=== PATIENT | female | born 1955 | race Caucasian/White ===

== ENCOUNTER 2023-10-06 10:00 | Observation (INO) ==
[2023-10-06] MEDS: VERSED ONE (10:13)
[2023-10-06] MEDS: NOZIN NASAL SANITIZER TP ONE (10:45)
[2023-10-06] MEDS: NS 1,000 ML IV 1,000 ML ONE ×2 (10:45→13:57)
[2023-10-06 11:52] VITALS: BMI 32.5
[2023-10-06] MEDS: PRECEDEX INJ VIAL ONE (12:07)
[2023-10-06] MEDS: NAROPIN 0.75% EPI ONE (12:07)
[2023-10-06] MEDS: ANCEF VIAL 1 GRAM ONE (12:51)
[2023-10-06] MEDS: NS 100 ML IV 100 ML ONE (12:51)
[2023-10-06] MEDS: MARCAINE 0.25% INJ ONE (12:52)
[2023-10-06] MEDS ORDERED: XYLOCAINE 2 % (PLAIN) ONE (13:04)
[2023-10-06] MEDS ORDERED: ULTANE GAS IN ONE (13:04)
[2023-10-06] MEDS: DIPRIVAN VIAL 20 ML ONE (13:04)
[2023-10-06] MEDS: PEPCID 20 MG VIAL ONE (13:04)
[2023-10-06] MEDS: FENTANYL VIAL INJ 100 mcg ONE (13:04)
[2023-10-06] MEDS: ZOFRAN INJ 4 MG VIAL ONE (13:04)
[2023-10-06] MEDS: DECADRON INJ ONE ×2 (13:04)
[2023-10-06] MEDS: OFIRMEV IV 1000 MG VIAL 1,000 MG/100 ML VIAL IV ONE (13:04)
[2023-10-06] MEDS ORDERED: KETAMINE HCL ONE (13:04)
[2023-10-06] MEDS: EPHEDRINE SULFATE INJ ONE (13:37)
[2023-10-06] MEDS ORDERED: REGLAN INJ 10 MG VIAL IVP PRN (15:22)
[2023-10-06] MEDS ORDERED: BARHEMSYS INJ IVP PRN (15:22)
[2023-10-06] MEDS ORDERED: DILAUDID INJ IVP PRN ×2 (15:22→15:40)
[2023-10-06] MEDS ORDERED: ZOFRAN INJ 4 MG VIAL IVP PRN ×2 (15:22→15:40)
[2023-10-06] MEDS ORDERED: BENADRYL INJ 50 MG VIAL IVP PRN (15:22)
[2023-10-06] MEDS ORDERED: PERCOCET TAB 5/325 MG PO PRN (15:40)
[2023-10-06] MEDS: NS 1,000 ML IV 1,000 ML IV SCH (17:15)
[2023-10-06] MEDS: COLACE CAP 100 MG PO SCH (21:07)
[2023-10-06] MEDS: ANCEF VIAL 1 GRAM IVP SCH (21:08)
[2023-10-06] MEDS: NOZIN NASAL SANITIZER TP SCH (21:48)
[2023-10-07 05:40] LABS: BLOOD UREA NITROGEN 17 mg/dL (7-18); CALCIUM 8.1 mg/dL (8.5-10.1); CARBON DIOXIDE 28.4 mmol/L (21-32); CHLORIDE 107 mmol/L (98-107); COR NA(FOR HYPERGLY) 144 mmol/L (136-145); CREATININE 0.88 mg/dL (0.55-1.02); GLUCOSE 134 mg/dL (65-99); POTASSIUM 4.1 mmol/L (3.5-5.1); SODIUM 143 mmol/L (136-145); eGFR NON BLACK RACES > 60 (>60)
[2023-10-07 07:55] VITALS: BP 145/72; PULSE 82; RESP 18; TEMP 97.1; O2SAT 93
[2023-10-07] MEDS: LOVENOX INJ 40 MG SYR SC SCH (08:26)
[2023-10-07] MEDS: TYLENOL 325 MG TAB PO PRN (08:27)
--- NOTE | 2023-10-07 08:42 | NOTE.SOAP ---
Soap Note Note for Day of Date of Exam: 10/07/23 Subjective Data Subjective Data: Patient is POD1 s/p Hardware exchange, STJ and ANkle fusion, right lower extremity. Patient is doing well this am; no complaints or pain exception of a headache. She states she is ready to go home. Objective Data Objective Data: Incisions are well coapted; there was quite a bit of sanguinous drainage this morning expected in the post op period. Skin looks good, minimal edema. Neurovascular status intact. Able to move toes Assessment Assessment: S/P Hardware exchange, STJ and Ankle fusion, right - Pseudoarthrosis, RLE Plan Plan: Patient seen bedside this am. She is doing well and has no complaints other than a headache. Cont RICE protocol. Pain meds on schedule. Dressing changed with Xeroform DSD. Patient is NWB to the RLE with assistive device. Patient is to follow up with Dr Duckworth at scheduled appointment or sooner if any problems arrise. She is okay for discharge from a podiatry standpoint; please dispense Rx and post op instructions in the chart
--- NOTE | 2023-10-07 17:21 | PCM.DCPLAN ---
DISCHARGE SUMMARY Admission Date Date of Admission: 10/06/23 Discharge Date Discharge Date: 10/07/23 Admission Diagnoses (1) Delayed union of ankle fracture: Status: Acute (2) Nonunion of subtalar arthrodesis: Status: Acute (3) Essential (primary) hypertension: Status: Acute (4) Acquired hypothyroidism: Status: Acute (5) Mixed hyperlipidemia: Status: Acute (6) Type 2 diabetes mellitus with diabetic polyneuropathy: Status: Acute Discharge Diagnoses Discharge Diagnosis: s/p RIGHT ankle fusion Same as above. Discharge Medications Discharge Medications: Home Medication List acyclovir 400 mg tablet 400 mg PO BID 10/06/23 [History] alprazolam 0.5 mg tablet 0.5 mg PO QDAY PRN 10/06/23 [History] buspirone 10 mg tablet 10 mg PO BID 10/06/23 [History] levothyroxine 100 mcg tablet 100 mcg PO QAM 10/06/23 [History] methocarbamol 500 mg tablet 500 mg PO Q8H 10/06/23 [History] olmesartan 20 mg-hydrochlorothiazide 12.5 mg tablet 1 tab PO QDAY 10/06/23 [History] pantoprazole 40 mg tablet,delayed release 40 mg PO QDAY 10/06/23 [History] pravastatin 80 mg tablet 80 mg PO QDAY 10/06/23 [History] pregabalin 75 mg capsule 75 mg PO BID 10/06/23 [History] tirzepatide 2.5 mg/0.5 mL subcutaneous pen injector (Mounjaro) 2.5 mg subcut QWEEK 10/06/23 [History] trazodone 50 mg tablet 25 mg PO QPM 10/06/23 [History] venlafaxine 100 mg tablet 100 mg PO BID 10/06/23 [History] enoxaparin 40 mg/0.4 mL subcutaneous syringe 40 mg (0.4 mL) SC DAILY #0 mL 0 10/07/23 [Rx] enoxaparin 40 mg/0.4 mL subcutaneous syringe (Lovenox) 40 mg (0.4 mL) subcut Q24H #30 mL 10/07/23 [Rx] ondansetron 8 mg disintegrating tablet 8 mg PO Q8H PRN #18 tabs 10/07/23 [Rx] oxycodone-acetaminophen 5 mg-325 mg tablet 1 tab PO Q4H PRN #36 tabs 10/07/23 [Rx] oxycodone-acetaminophen 5 mg-325 mg tablet (Percocet) 1 tab PO Q4H PRN Pain, Severe #36 tabs 10/07/23 [Rx] Prescriptions: enoxaparin [Lovenox] Socorro Busch ondansetron [facility] Busch oxycodone-acetaminophen [Percocet] Socorro Busch Hospital Course Vital Signs: Vital Signs Respiratory Rate 18 Respiratory Rate 18 Latest Lab Results: Laboratory Last Values Sodium 143 mmol/L (136-145) 10/07/23 05:00 Corrected Sodium 144 mmol/L (136-145) 10/07/23 05:00 Potassium 4.1 mmol/L (3.5-5.1) 10/07/23 05:00 Chloride 107 mmol/L (98-107) 10/07/23 05:00 Carbon Dioxide 28.4 mmol/L (21-32) 10/07/23 05:00 BUN 17 mg/dL (7-18) 10/07/23 05:00 Creatinine 0.88 mg/dL (0.55-1.02) 10/07/23 05:00 Est GFR (MDRD) Af Amer > 60 (>60) 10/07/23 05:00 Est GFR (MDRD) Non-Af > 60 (>60) 10/07/23 05:00 Glucose 134 mg/dL (65-99) H 10/07/23 05:00 POC Glucose (mg/dL) 103 mg/dL (65-99) H 10/06/23 10:54 Calcium 8.1 mg/dL (8.5-10.1) L 10/07/23 05:00 Hospital Course: Patient admitted yesterday following fusion of the right ankle by podiatry. She is postop day 1 and doing well. Podiatry advised that she is stable for discharge as long as she is not weightbearing to the right lower extremity. Spouse is at bedside and both are comfortable with her going home today. They state they have all the DME and other supplies they need at home. Nurses report no overnight events. Vitals and labs reviewed. She is eating normally, drinking well, not experiencing any nausea or vomiting, passing flatus, and urinating without difficulty.
== END 2023-10-07 12:30 | disposition home or self-care (01) ==
LOC: MED/SURG → EDUNIT# 10:00
PROVIDERS: ADMIT Obstetrics & Gynecology Obstetrics; ATTEND Obstetrics & Gynecology Obstetrics
PROC: HARDREM (ICD-10-PCS; 2023-10-06 10:10)